=== PATIENT | female | born 1985 | race Hispanic/Latino ===

== ENCOUNTER 2016-11-26 15:07 | Emergency (ER) | payer OTHER ==
--- NOTE | 2016-11-26 15:26 | ED GI/GU/ABDOMINAL COMPLAINT ---
History of Present Illness General Chief Complaint: General Adult Stated Complaint: PT SIB URGENT CARE POSSIBLE APPENDICITIS Source: patient Exam Limitations: no limitations Vital Signs & Intake/Output Vital Signs & Intake/Output Vital Signs Date Time Temp Pulse Resp B/P B/P Pulse O2 O2 Flow FiO2 Mean Ox Delivery Rate 11/26 1513 97.0 67 20 113/73 98 Allergies Coded Allergies: NO KNOWN ALLERGIES (11/26/16) Reconcile Medications Ondansetron (Zofran Odt) 4 MG TAB.RAPDIS 1 TAB SL TID PRN NAUSEA AND VOMITING Triage Note: PER PT SENT BY PHYSICAN 1 TO R/O APPENDICITIS, PT REPORTS ABD PAIN X 2 DAYS X24 FEELING ANXIOUS SL NAUSEA AND DIARRHEA, NO FEVERS LMP LAST WEEK Triage Nurses Notes Reviewed? yes ? N Is pt currently ? No HPI: This patient is a 31-year-old female who presented to the emergency department today sent up by physician 1 urgent care clinic for evaluation of abdominal pain to rule out appendicitis. The patient reported that last night she is noted to develop lower abdominal pain primarily in her right lower quadrant in near her umbilicus. She reported that she vomited throughout the night, unable to quantify the amount of times. She denied any blood in the vomitus. Positive associated nausea. She denied any fevers or chills. No chest pain or difficulty breathing. The patient did report feeling anxious last night. She denied any urinary burning, urgency, frequency, or blood in the urine. She did report a few episodes of diarrhea. Past History Travel History Traveled to [place] past 21 day No Medical History Any Pertinent Medical History? see below for history Neurological: NONE EENT: NONE Cardiovascular: NONE Respiratory: NONE Gastrointestinal: NONE Hepatic: NONE Renal: NONE Musculoskeletal: NONE Psychiatric: NONE Surgical History Surgical History: non-contributory Psychosocial History What is your primary language Gabonese Tobacco Use: Never used Family History Hx Contributory? No Review of Systems Review of Systems Constitutional: Reports: no symptoms. EENTM: Reports: no symptoms. Respiratory: Reports: no symptoms. Cardiovascular: Reports: no symptoms. GI: Reports: see HPI. Genitourinary: Reports: no symptoms. Musculoskeletal: Reports: no symptoms. Skin: Reports: no symptoms. Neurological/Psychological: Reports: see HPI. All Other Systems: Reviewed and Negative Physical Exam Physical Exam Gastrointestinal: normal bowel sounds, soft, no organomegaly, TENDERNESS PALPATION IN THE RIGHT LOWER QUADRANT AND LEFT LOWER QUADRANT WITH NO REBOUND OR GUARDING. pOSITIVE rOVSING SIGN. nEGATIVE PSOAS SIGN. nEGATIVE OBTURATOR SIGN. nEGATIVE mCbURNEY'S POINT TENDERNESS. nO MASSES APPRECIATED. nONDISTENDED Comments: Well-developed well-nourished person in no acute distress HEENT: Normal EENT exam, head normocephalic, moist mucous membranes Pupils equally round and reactive to light. Neck: Supple, no lymphadenopathy Back: Normal gait. Normal inspection Cardiovascular: Regular rate and rhythm with no murmurs, rubs, or gallops Respiratory: Speaking in full sentences. No respiratory distress. Breath sounds clear to auscultation bilaterally Extremity: Normal equal pulses Neuro: Alert oriented x3, cranial nerves II through XII grossly intact. Skin: No appreciable rash on exposed skin, skin is warm and dry. Psych: Mood and affect is normal Core Measures ACS in differential dx? No Severe Sepsis Present: No Septic Shock Present: No Progress Differential Diagnosis: AAA, AMI, appendicitis, biliary colic, bowel obstruction , colon cancer, cholecystitis, diverticulitis, ectopic , endometritis, gastritis, hepatitis, ischemic bowel, inflamm bowel dis, intrauterine , kidney stone, ovarian cyst, ovarian torsion, pancreatitis, PID/cervicitis, PUD/ GERD, perforated viscous, threatened AB, UTI/pyelo Plan of Care: Orders Procedure Date/time Status LACTIC ACID 11/26 1817 Active Add-on Test (ER Only) 11/26 1603 Active HUMAN BETA HCG SCREEN 11/26 1527 Complete URINE 11/26 1521 Active URINALYSIS 11/26 1521 Active LIPASE 11/26 1517 Complete LACTIC ACID 11/26 1517 Complete DIRECT BILIRUBIN 11/26 1517 Complete COMPREHENSIVE METABOLIC PANEL 11/26 1517 Complete CBC WITHOUT DIFFERENTIAL 11/26 1517 Complete AMYLASE 11/26 1517 Complete Laboratory Tests 11/26/16 1527: Anion Gap 10, Estimated GFR > 60, BUN/Creatinine Ratio 12.5, Glucose 75, Lactic Acid 0.6 L, Calcium 9.3, Total Bilirubin 0.5, Direct Bilirubin 0.2, AST 16, ALT 31, Alkaline Phosphatase 36, Total Protein 7.0, Albumin 4.1, Globulin 2.9, Albumin/Globulin Ratio 1.4, Amylase 59, Lipase 52, Total Beta HCG NEGATIVE, CBC w Diff NO MAN DIFF REQ, RBC 4.41, MCV 87.9, MCH 29.4, RDW 14.1, MPV 7.9, Gran % 31.4 L, Lymphocytes % 50.2, Monocytes % 14.8 H, Eosinophils % 2.7, Basophils % 0.9, Absolute Granulocytes 1.4, Absolute Lymphocytes 2.3, Absolute Monocytes 0.7 H, Absolute Eosinophils 0.1, Absolute Basophils 0, PUBS MCHC 33.5 Diagnostic Imaging: Viewed by Me: CT Scan. Discussed w/RAD: CT Scan. Radiology Impression: PATIENT: REYNA MOORE PRESENT AGE: 31 PATIENT ACCOUNT NO: [id number] : 84 LOCATION: [facility] ORDERING PHYSICIAN: HANS JAMES PA-C SERVICE DATE: 11/26/16 EXAM TYPE: CAT - CT ABD & PELVIS W IV CONTRAST EXAMINATION: CT ABDOMEN AND PELVIS WITH CONTRAST CLINICAL INFORMATION: Evaluate for appendicitis. Abdominal pain. COMPARISON: None TECHNIQUE: Multidetector volumetric imaging was performed of the abdomen and pelvis before and after the IV administration of 94 mL of Optiray 320 intravenous contrast. Sagittal and coronal reformatted images were obtained on the technologist's workstation. DLP: 556 mGy-cm FINDINGS: LUNG BASES: The visualized lung bases are unremarkable. LIVER, GALLBLADDER, AND BILIARY TREE: The liver is normal in size, shape, and attenuation. No focal hepatic lesion or biliary ductal dilatation is present. The gallbladder is unremarkable with no evidence of radiopaque gallstones, gallbladder wall thickening, or obvious pericholecystic inflammatory changes. PANCREAS: Unremarkable. SPLEEN: Unremarkable. ADRENAL GLANDS: Unremarkable. KIDNEYS AND URETERS: The kidneys are normal in size, shape, and attenuation. No hydronephrosis, hydroureter, or calculi seen. No perinephric stranding. BLADDER: Unremarkable. GASTROINTESTINAL TRACT: Appendix not definitively visualized. No inflammatory changes in the right lower quadrant in the expected region of the appendix . The bowel and stomach are normal. ABDOMINAL WALL: No significant hernia is appreciated. LYMPH NODES: Normal. VASCULAR: Unremarkable. PELVIC VISCERA: There is heterogeneous enhancement of the uterus likely due to timing of the enhancement and likely without clinical significance. Mass unlikely. Intrauterine device noted. OSSEOUS STRUCTURES: Unremarkable. IMPRESSION: Appendix not visualized. However no inflammatory changes in the expected region of the appendix in the right lower quadrant. Heterogeneous appearance of the uterus likely due to the timing of the imaging after injection rather than mass in the uterus. If clinical concern for pelvic abnormality consider follow-up ultrasound DICTATED BY: RAMSES IBARRA MD DATE/TIME DICTATED:11/26/161646 ROLLER PRINTER:SON DATE/TIME TRANSCRIBED:11/26/161646 CONFIDENTIAL, DO NOT COPY WITHOUT APPROPRIATE AUTHORIZATION. <Electronically signed in Other Vendor System> SIGNED BY: RAMSES IBARRA MD 11/26/16 1998 Initial ED EKG: none Departure Departure Disposition: HOME OR SELF CARE Condition: Stable Clinical Impression Primary Impression: Gastroenteritis Referrals: PATIENT HAS NO PRIMARY CARE DR (PCP/Family) Additional Instructions: Please take medication for nausea as prescribed. Rest and be sure to stay hydrated. Return for any worsening symptoms or concerns. Departure Forms: Customer Survey General Discharge Information Prescriptions: Current Visit Scripts Ondansetron (Zofran Odt) 1 TAB SL TID PRN NAUSEA AND VOMITING #10 TAB
[2016-11-26 15:44] LABS: ABSOLUTE BASOPHIL COUNT 0 /CUMM (0.0-0.2); ABSOLUTE EOSINOPHIL COUNT 0.1 /CUMM (0.0-0.7); ABSOLUTE GRANULOCYTE CT 1.4 /CUMM (1.4-6.5); ABSOLUTE LYMPH COUNT 2.3 /CUMM (1.2-3.4); ABSOLUTE MONOCYTE COUNT 0.7 /CUMM (0.10-0.60); BASOPHIL % 0.9 % (0.0-2.0); EOSINOPHIL % 2.7 % (0-5); GRANULOCYTE % 31.4 % (42.2-75.2); HEMATOCRIT 38.7 % (37-47); MEAN CORPUSCULAR HGB 29.4 PG (27.0-31.0); MEAN CORPUSCULAR HGB CONC 33.5 G/DL (33.0-37.0); MEAN CORPUSCULAR VOLUME 87.9 FL (81.0-99.0); MEAN PLATELET VOLUME 7.9 FL (7.4-10.4); PLATELET COUNT 286 /CUMM (130-400); RBC DISTRIBUTION WIDTH 14.1 % (11.5-14.5); RED BLOOD CELL CT 4.41 /CUMM (4.20-5.40); WHITE BLOOD CELL COUNT 4.6 /CUMM (4.8-10.8)
--- NOTE | 2016-11-26 17:02 | CT SCAN REPORT ---
EXAMINATION: CT ABDOMEN AND PELVIS WITH CONTRAST CLINICAL INFORMATION: Evaluate for appendicitis. Abdominal pain. COMPARISON: None TECHNIQUE: Multidetector volumetric imaging was performed of the abdomen and pelvis before and after the IV administration of 94 mL of Optiray 320 intravenous contrast. Sagittal and coronal reformatted images were obtained on the technologist's workstation. DLP: 556 mGy-cm FINDINGS: LUNG BASES: The visualized lung bases are unremarkable. LIVER, GALLBLADDER, AND BILIARY TREE: The liver is normal in size, shape, and attenuation. No focal hepatic lesion or biliary ductal dilatation is present. The gallbladder is unremarkable with no evidence of radiopaque gallstones, gallbladder wall thickening, or obvious pericholecystic inflammatory changes. PANCREAS: Unremarkable. SPLEEN: Unremarkable. ADRENAL GLANDS: Unremarkable. KIDNEYS AND URETERS: The kidneys are normal in size, shape, and attenuation. No hydronephrosis, hydroureter, or calculi seen. No perinephric stranding. BLADDER: Unremarkable. GASTROINTESTINAL TRACT: Appendix not definitively visualized. No inflammatory changes in the right lower quadrant in the expected region of the appendix . The bowel and stomach are normal. ABDOMINAL WALL: No significant hernia is appreciated. LYMPH NODES: Normal. VASCULAR: Unremarkable. PELVIC VISCERA: There is heterogeneous enhancement of the uterus likely due to timing of the enhancement and likely without clinical significance. Mass unlikely. Intrauterine device noted. OSSEOUS STRUCTURES: Unremarkable. IMPRESSION: Appendix not visualized. However no inflammatory changes in the expected region of the appendix in the right lower quadrant. Heterogeneous appearance of the uterus likely due to the timing of the imaging after injection rather than mass in the uterus. If clinical concern for pelvic abnormality consider follow-up ultrasound
[2016-11-26] MEDS ORDERED: ZOFRAN ODT4 M1 SL (17:08)
[2016-11-26 17:20] VITALS: BP 144/87
== END 2016-11-26 17:34 ==
LOC: ERH 15:07
PROVIDERS: Physician Assistant
DX: K52.9 Noninfective gastroenteritis and colitis, unspecified (principal)
CPT/HCPCS: 74177; 81025; 96374; 96375; J1885; J2405